=== PATIENT | female | born 1945 | race Caucasian/White ===

== ENCOUNTER 2016-12-13 11:42 | Emergency (ER) | payer OTHER ==
[~2016-12-13] VITALS: Ht 162.6 cm; Wt 83.0 kg
[~2016-12-13 11:42] MED LIST: ALBU8.5H3 INH; CIPR500T4 PO; GLIM2TAB47 PO; HYD25 PO; LANT3I SC; METF850T PO; METR500T PO; MULTI PO; OMEG1CAP31 PO; ONDA4TAB14 PO; PANT40TA4 PO; PRAV40TA76 PO; TEN25 PO; TRAM50TA2 PO
[2016-12-13 11:44] VITALS: Ht 162.6 cm; Wt 83.0 kg
[2016-12-13] MEDS ORDERED: ALBUTEROL/IPRATROPIUM (NEB) 3 ML AMP HHN STA (13:59)
--- NOTE | 2016-12-13 14:23 | ERD ---
ER Documentation Chief Complaint Date/Time DATE: 12/13/16 TIME: 14:19 Chief Complaint CHEST CONGESTION,COUGH,NOTED DRY BLOOD ON THE SPUTUM.SORE THROAT HPI This is a 71-year-old female who presents with cough and chest congestion for 4 days. Patient has a history of asthma, diabetes type 2, and hypertension. Patient has a smoking history. She had one episode of hemoptysis 3 days ago. She complains of chest pain that is reproducible with touch and is worse with walking. She denies history of cardiac related illness. Patient also has a runny nose and chills for 4 days. Patient denies nausea, vomiting, abdominal pain, diarrhea and sore throat. ROS All systems reviewed and are negative except as per history of present illness. Medications Home Meds Active Scripts Ondansetron (Ondansetron Odt) 4 Mg Tab.rapdis, 4 MG PO Q6H Y for NAUSEA AND/OR VOMITING, #14 TAB Prov:TERESA SHIPMAN. DO 09/13/16 Tramadol HCl (Tramadol HCl) 50 Mg Tablet, 50 MG PO TID, #30 TAB Prov:TERESA SHIPMAN. DO 09/13/16 Metronidazole* (Flagyl*) 500 Mg Tablet, 500 MG PO TID for 7 Days, TAB Prov:TERESA SHIPMAN. DO 09/13/16 Ciprofloxacin Hcl* (Ciprofloxacin Hcl*) 500 Mg Tablet, 500 MG PO BID for 7 Days , TAB Prov:TERESA SHIPMAN. DO 09/13/16 Reported Medications Albuterol Sulfate* (Proair HFA*) 8.5 Gm Hfa.aer.ad, 2 PUFF INH Q4H Y for WHEEZING AND SOB, #1 INHALER 09/13/16 Multivitamins* (Theragran*) 1 Tab Tab, 1 TAB PO DAILY, TAB 09/13/16 [place]-3/Dha/Epa/Fish Oil (FISH OIL 1,000 MG SOFTGEL) 1 Each Capsule, 1 EACH PO BID, CAP 09/13/16 Insulin Glargine* (Lantus*) 100 Unit/Ml Soln, 20 UNIT SC QHS, #1 VIAL 09/13/16 Hydrochlorothiazide* (Hydrochlorothiazide*) 25 Mg Tab, 25 MG PO DAILY, #30 TAB 09/13/16 Pravastatin Sodium* (Pravastatin Sodium*) 40 Mg Tablet, 40 MG PO AC BREAKFAST, TAB 09/13/16 Metformin Hcl* (Metformin Hcl*) 850 Mg Tablet, 850 MG PO BID WITH MEALS, TAB 04/20/15 Pantoprazole* (Pantoprazole*) 40 Mg Tablet.dr, 40 MG PO AC BREAKFAST 12/18/12 Glimepiride* (Amaryl*) 2 Mg Tablet, 4 MG PO BID, 0 Refills 07/18/10 Atenolol (Tenormin) 25 Mg Tab, 25 MG PO DAILY, 0 Refills 07/18/10 Allergies Allergies: Coded Allergies: aspirin (Verified Allergy, Severe, 04/20/15) codeine (Verified Allergy, Severe, 04/20/15) tetracycline (Verified Allergy, Severe, 04/20/15) PMhx/Soc History of Surgery: Yes (GALLBLADDER) Anesthesia Reaction: No Hx Neurological Disorder: No Hx Respiratory Disorders: No Hx Cardiac Disorders: Yes (HYPERTENSION,HIGH CHOLESTEROL) Hx Psychiatric Problems: No Hx Miscellaneous Medical Probl: Yes (DM) Hx Alcohol Use: No Hx Substance Use: No Hx Tobacco Use: No Smoking Status: Never smoker FmHx Noncontributory for chief complaint Physical Exam Vitals Vital Signs Date Time Temp Pulse Resp B/P Pulse Ox O2 Delivery O2 Flow Rate FiO2 12/13/16 11:44 97.8 80 18 188/61 98 Physical Exam INITIAL VITAL SIGNS: Reviewed by me. GENERAL: Alert and interactive. No acute distress. Obese body habitus HEAD: Head is normocephalic and atraumatic. EYES: EOMI. No scleral icterus. No conjunctival injection. ENT: Moist mucosa. NECK: Supple. Full range of motion. RESPIRATORY: Normal respiratory effort. Clear breath sounds bilaterally. No wheezing, rales, or rhonchi. CV: Regular rate and rhythm. Normal S1 S2. No S3 or S4. No murmurs. ABDOMEN: Soft, non-distended, non-tender. No guarding. No rebound. No masses. EXTREMITIES: No deformity. SKIN: Warm and dry. NEUROLOGIC: Alert and oriented x 4. Speech is normal. Moves all extremities equally. No motor or sensory deficits noted. Results 24 hrs Current Medications Medications (Trade) Dose Ordered Sig/Ibrahima Route PRN Reason Start Time Stop Time Status Last Admin Dose Admin Albuterol/ Ipratropium (Duoneb) 3 ml ONCE STAT HHN 12/13/16 13:59 12/13/16 14:02 DC Procedures/MDM EMERGENCY DEPARTMENT COURSE / MEDICAL DECISION MAKING: This is a 71 -year-old female who comes to the emergency room secondary to complaints of cough The patient was given medication nebulizer treatment in the department. On re- evaluation, the patient was feeling improved. Radiology: PROCEDURE: XR Chest. CLINICAL INDICATION: Cough/chest pain TECHNIQUE: Chest PA COMPARISON: 12/19/2015 FINDINGS: The mediastinal structures are unremarkable. There is calcification of the thoracic aorta (consistent with atherosclerosis). The heart is normal in size and configuration. The pulmonary vascularity is normal. The lung souza are unremarkable. No consolidation is identified. The pleural spaces are unremarkable. There are senescent changes of the axial skeleton. IMPRESSION: Calcification of the thoracic aorta (consistent with atherosclerosis). No evidence for active cardiopulmonary disease. EKG: Interpreted by ED physician Rate/Rhythm: Normal sinus rhythm with a with a rate of 68 bpm QRS, ST, T-waves: No changes consistent w/ acute ischemia Impression: No evidence of ischemia or arrhythmia The primary diagnosis is upper respiratory infection. Secondary diagnosis is cough. I have low suspicion for at this time bronchitis, pneumonia, acute coronary ischemia, other cardiopulmonary abnormality. Discharge: I have discussed the lab results and diagnostic findings with the patient and answered any questions or concerns. The patient was discharged with a prescription for Tessalon Perles and promethazine DM. The patient was advised to followup with their PMD in 1-2 days and to return to the Emergency Department if there are any new or worsening symptoms. The patient understood and agreed with the diagnosis, treatment and plan. The patient is stable for discharge at this time. Departure Diagnosis: Primary Impression: Upper respiratory infection Additional Impression: Cough Condition: Stable Patient Instructions: Cough, Chronic, Uncertain Cause, (Adult), Preventing Common Respiratory Infections Referrals: [facility] Additional Instructions: Follow-up with your primary care physician within 1 week. Return to the emergency department immediately should you have any new or worsening symptoms, uncontrolled fevers, or other unexplained symptoms. Take all medications as directed. SHELIA PIPER PA-C Dec 13, 2016 14:23
--- NOTE | 2016-12-13 14:26 | RADRPT ---
PROCEDURE: XR Chest. CLINICAL INDICATION: Cough/chest pain TECHNIQUE: Chest PA COMPARISON: 12/19/2015 FINDINGS: The mediastinal structures are unremarkable. There is calcification of the thoracic aorta (consiste nt with atherosclerosis). The heart is normal in size and configuration. The pulmonary vascularity is normal. The lung souza are unremarkable. No consolidation is identified. The pleural spaces are unremarkable. There are senescent changes of the axial skeleton. IMPRESSION: Calcification of the thoracic aorta (consistent with atherosclerosis). No evidence for active cardiopulmonary disease. RPTAT: HGDB .Kee Freedman MD, Date Time Electronically viewed and signed by .Kee Freedman MD, on 12/13/2016 14:26 .B/
[2016-12-13] MEDS ORDERED: BENZ100C70 PO (14:38)
[2016-12-13] MEDS ORDERED: D-ME473S18 PO (14:39)
[2016-12-13] MEDS ORDERED: ALBUTEROL 0.5% (NEB) 2.5 MG/0.5 ML AMP ONE (14:42)
[2016-12-13] MEDS ORDERED: IPRATROPIUM (NEB) 0.5 MG/2.5 ML AMP ONE (14:42)
[2016-12-13] MEDS ORDERED: ALBUTEROL 0.083% (NEB) 2.5 MG/3 ML AMP HHN ONE (15:00)
[2016-12-13] MEDS ORDERED: IPRATROPIUM (NEB) 0.5 MG/2.5 ML AMP HHN ONE (15:00)
[2016-12-13] MEDS ORDERED: ALBUTEROL 0.5% (NEB) 2.5 MG/0.5 ML AMP HHN STA (15:04)
[2016-12-13 15:30] VITALS: BP 172/66; PULSE 89; RESP 18; TEMP 98.2
== END 2016-12-13 15:32 | disposition home or self-care (01) ==
LOC: FTE 11:42
DX: J06.9 Acute upper respiratory infection, unspecified (principal); I10 Essential (primary) hypertension; E11.9 Type 2 diabetes mellitus without complications; J45.909 Unspecified asthma, uncomplicated; E66.9 Obesity, unspecified; Z79.4 Long term (current) use of insulin; Z79.84 Long term (current) use of oral hypoglycemic drugs; Z87.891 Personal history of nicotine dependence; Z68.31 Body mass index [BMI] 31.0-31.9, adult
CPT/HCPCS: 71010; 93005; 94640

== ENCOUNTER 2017-03-05 09:33 | Inpatient (IN) | payer OTHER ==
[~2017-03-05] VITALS: Ht 157.5 cm; Wt 85.0 kg
[~2017-03-05 09:33] MED LIST changes: +ATEN-138 PO; +BENZ100C70 PO; +D-ME473S18 PO; -TEN25 PO
[2017-03-05] MEDS ORDERED: SODIUM CHLORIDE 0.9% 1L BAG IV* STA (10:09)
--- NOTE | 2017-03-05 10:29 | ERD ---
ER Documentation Chief Complaint Date/Time DATE: 03/05/17 TIME: 10:28 Chief Complaint Complains of fever x 2 days HPI 71-year-old woman presents with lower abdominal pain mostly suprapubic and left lower quadrant as well as dysuria 2 days and fever. She complains of chills as well. No vaginal discharge or vaginal bleeding, no cough, no sore throat, no complaints of chest pain or shortness of breath. Patient denies vomiting or diarrhea, no headache or blurry vision, no neck pain or stiffness. Patient denies recent antibiotic use. ROS All systems reviewed and are negative except as per history of present illness. Medications Home Meds Active Scripts Dextromethorphan Hb-Promethazine Hcl (Promethazine DM Syrup) 473 Ml Syrup, 5 ML PO Q6H Y for COUGH, #4 OZ Prov:SHELIA PIPER PA-C 12/13/16 Benzonatate* (Tessalon Perle*) 100 Mg Capsule, 100 MG PO Q8H Y for COUGH, #20 CAP Prov:SHELIA PIPER PA-C 12/13/16 Ondansetron (Ondansetron Odt) 4 Mg Tab.rapdis, 4 MG PO Q6H Y for NAUSEA AND/OR VOMITING, #14 TAB Prov:TERESA SHIPMAN DO 09/13/16 Tramadol HCl (Tramadol HCl) 50 Mg Tablet, 50 MG PO TID, #30 TAB Prov:TERESA SHIPMAN. DO 09/13/16 Metronidazole* (Flagyl*) 500 Mg Tablet, 500 MG PO TID for 7 Days, TAB Prov:TERESA SHIPMAN DO 09/13/16 Ciprofloxacin Hcl* (Ciprofloxacin Hcl*) 500 Mg Tablet, 500 MG PO BID for 7 Days , TAB Prov:TERESA SHIPMAN DO 09/13/16 Reported Medications Albuterol Sulfate* (Proair HFA*) 8.5 Gm Hfa.aer.ad, 2 PUFF INH Q4H Y for WHEEZING AND SOB, #1 INHALER 09/13/16 Multivitamins* (Theragran*) 1 Tab Tab, 1 TAB PO DAILY, TAB 09/13/16 [place]-3/Dha/Epa/Fish Oil (FISH OIL 1,000 MG SOFTGEL) 1 Each Capsule, 1 EACH PO BID, CAP 09/13/16 Insulin Glargine* (Lantus*) 100 Unit/Ml Soln, 20 UNIT SC QHS, #1 VIAL 09/13/16 Hydrochlorothiazide* (Hydrochlorothiazide*) 25 Mg Tab, 25 MG PO DAILY, #30 TAB 09/13/16 Pravastatin Sodium* (Pravastatin Sodium*) 40 Mg Tablet, 40 MG PO AC BREAKFAST, TAB 09/13/16 Metformin Hcl* (Metformin Hcl*) 850 Mg Tablet, 850 MG PO BID WITH MEALS, TAB 04/20/15 Pantoprazole* (Pantoprazole*) 40 Mg Tablet.dr, 40 MG PO AC BREAKFAST 12/18/12 Glimepiride* (Amaryl*) 2 Mg Tablet, 4 MG PO BID, 0 Refills 07/18/10 Atenolol (Tenormin) 25 Mg Tab, 25 MG PO DAILY, 0 Refills 07/18/10 Allergies Allergies: Coded Allergies: aspirin (Verified Allergy, Severe, 04/20/15) codeine (Verified Allergy, Severe, 04/20/15) tetracycline (Verified Allergy, Severe, 04/20/15) PMhx/Soc Hypertension, diabetes mellitus, gastritis, asthma, obesity, history of cholecystectomy History of Surgery: Yes (GALLBLADDER) Anesthesia Reaction: No Hx Neurological Disorder: No Hx Respiratory Disorders: No Hx Cardiac Disorders: Yes (HYPERTENSION,HIGH CHOLESTEROL) Hx Psychiatric Problems: No Hx Miscellaneous Medical Probl: Yes (DM) Hx Alcohol Use: No Hx Substance Use: No Hx Tobacco Use: No FmHx Family History: No diabetes Physical Exam Vitals Vital Signs Date Time Temp Pulse Resp B/P Pulse Ox O2 Delivery O2 Flow Rate FiO2 03/05/17 10:40 99 22 205/83 97 Room Air 03/05/17 09:38 101.7 93 20 207/77 100 Physical Exam GENERAL: Well-developed, well-nourished, febrile, moderate discomfort HEENT: Moist mucous membranes, pink conjunctiva, no cervical spine tenderness or step-off deformities, no goiter, no jaundice or icterus, extraocular movements intact without pain. No submandibular induration, and no pharyngeal erythema NEURO: Alert and oriented 3, cranial nerves II through XII intact bilaterally, pupils equal round reactive to light, no focal deficits or facial asymmetry, sensation intact distally Strength 5/5 in upper and lower extremities bilaterally CARDIAC: Tachycardic and regular, no murmurs rubs or gallops LUNGS: Clear bilaterally no wheezing crackles or stridor ABDOMEN: Soft nontender, no guarding, no rigidity, no rebound, no psoas sign no obturator sign. Normoactive bowel sounds SKIN: Warm and dry to touch, no abrasions, contusions, or hematomas, no lacerations, no ecchymosis, no target lesions, and without ulcers EXTREMITIES: No clubbing cyanosis or edema, calves are bilaterally symmetrical, no Homans sign, no popliteal cord sign. Distal pulses equal and bilateral PSYCH: Normal affect without agitation or irritability Result Diagram: 03/05/17 1010 03/05/17 1010 Results 24 hrs Laboratory Tests Test 03/05/17 10:06 03/05/17 10:10 03/05/17 10:25 Bedside Glucose 150mg/dL White Blood Count 14.710^3/ul Red Blood Count 4.8210^6/ul Hemoglobin 13.7g/dl Hematocrit 41.7% Mean Corpuscular Volume 86.5fl Mean Corpuscular Hemoglobin 28.4pg Mean Corpuscular Hemoglobin Concent 32.9g/dl Red Cell Distribution Width 13.4% Platelet Count 28021^3/UL Mean Platelet Volume 9.8fl Neutrophils % 76.5% Lymphocytes % 19.2% Monocytes % 2.6% Eosinophils % 0.9% Basophils % 0.5% Nucleated Red Blood Cells % 0.0/100WBC Neutrophils # 11.310^3/ul Lymphocytes # 2.810^3/ul Monocytes # 0.410^3/ul Eosinophils # 0.110^3/ul Basophils # 0.110^3/ul Nucleated Red Blood Cells # 0.010^3/ul Prothrombin Time 12.5Sec Prothrombin Time Ratio 1.0 INR International Normalized Ratio 0.93 Activated Partial Thromboplast Time 31.7Sec Sodium Level 134mmol/L Potassium Level 4.1mmol/L Chloride Level 93mmol/L Carbon Dioxide Level 29mmol/L Anion Gap 16 Blood Urea Nitrogen 14mg/dl Creatinine 0.63mg/dl Glucose Level 169mg/dl Lactic Acid Level 2.3mmol/L Calcium Level 9.8mg/dl Total Bilirubin 0.5mg/dl Direct Bilirubin 0.00mg/dl Indirect Bilirubin 0.5mg/dl Aspartate Amino Transf (AST/SGOT) 51IU/L Alanine Aminotransferase (ALT/SGPT) 43IU/L Alkaline Phosphatase 74IU/L Troponin I < 0.012ng/ml Total Protein 8.5g/dl Albumin 4.7g/dl Globulin 3.80g/dl Albumin/Globulin Ratio 1.23 Lipase 132U/L Urine Color LT. YELLOW Urine Clarity CLEAR Urine pH 7.0 Urine Specific Drain 1.010 Urine Ketones NEGATIVE Urine Nitrite NEGATIVE Urine Bilirubin NEGATIVE Urine Urobilinogen 0.2 E.U./dL Urine Leukocyte Esterase NEGATIVE Urine Hemoglobin NEGATIVE Urine Glucose NEGATIVE% Urine Total Protein NEGATIVE Current Medications Medications (Trade) Dose Ordered Sig/Ibrahima Route PRN Reason Start Time Stop Time Status Last Admin Dose Admin Sodium Chloride 3000 ml 3,000 ml BOLUS OVER 2 HOURS STAT IV* 03/05/17 10:09 03/05/17 10:10 DC 03/05/17 10:35 Ceftriaxone Sodium (Rocephin) 50 ml @ 100 mls/hr ONCE ONCE IVPB 03/05/17 10:30 03/05/17 11:08 DC 03/05/17 10:35 Ibuprofen 600 mg 600 mg ONCE ONCE PO 03/05/17 10:30 03/05/17 10:31 DC 03/05/17 10:35 Metronidazole (Flagyl 500 Mg (Pmx)) 100 ml @ 100 mls/hr ONCE ONCE IVPB 03/05/17 11:30 03/05/17 12:29 DC 03/05/17 11:46 Procedures/MDM IV line was established patient was placed on cardiac cath tech rhythm strip revealed a sinus tachycardia at about 110 bpm with upright P and T waves. Patient was febrile. Blood and urine cultures have been ordered results are pending I will follow-up. EKG performed, read by me revealed a sinus tachycardia at 102 bpm, normal axis, narrow QRS complex, no concerning ST elevations or depressions noted. Chest X-ray 1V Interpreted by me: Soft Tissue: No acute abnormalities Bones: No acute abnormalities Mediastinum/Cardiac Silhouette/Lungs: No acute abnormalities CT scan of abdomen and pelvis was also performed, there is no acute inflammatory infectious pathology noted. Please refer to radiologist dictation for full report. Given her initial complaints of abdominal pain, fever, and tachycardia treated her here for possible sepsis with ceftriaxone 1 g IV and metronidazole 500 mg IV. Patient also received ibuprofen 600 mg p.o., and about 3 L normal saline intravenously CBC reveals a leukocytosis of 15, electrolytes reveal BUN/creatinine 14/0.6, liver function tests are normal, troponin was negative, lactic acid elevated at 2.3. Initial urine analysis was negative although given her overall presentation and symptomatology I do suspect early UTI, cultures are pending. Other septic sources have been considered although further interventional management and diagnostic procedures deferred to inpatient managing team. Patient's infectious symptoms have not stabilized and the patient is at risk of rapid decompensation. The patient will be admitted for careful hydration, antibiotic therapy, and infectious source control. Severe Sepsis Assessment: Infectious Source: pyleonephritis Patient has no signs or symptoms of end-organ damage and lab criteria for end- organ damage is unremarkable. Severe Sepsis Managment: Blood Cultures X 2 before broad spectrum antibiotics initiated within 3 hours of recognition. 30 ml/kg NS bolus Completed Initial Lactate: Elevated at 2.3 Repeat Lactate pending Critical Care: Time: 42 minutes, this was time separate from other procedures Treatments/Evaluations: Emergent fluid management, while maintaining close respiratory support. Immediate broad spectrum antibiotic therapy. Simultaneous assessment for possible sources in order to direct therapy. Consideration for invasive and chemical support to prevent respiratory or cardiac collapse. Septic Shock Assessment (1 hour post 30 ml/kg fluid bolus): Hypotension (SBP < 90 or 40 mmHg drop, MAP < 65): No Lactic acid > 4.0 No Perfusion Reassessment for Septic Shock: Temp 100, pulse 84 bpm, respiratory rate 16 breaths per minute, blood pressure 120/80 Heart Exam: Regular rate and rhythm Lung Exam: No Crackles Capillary Refill: Less than 2 second Peripheral Pulses: Radially present Skin: Warm and dry Hypotensive Treatment (not required for isolated lactic acid elevation): Comfort Care: No Central LIne: Not indicated Vasopressor started: Not indicated I considered further perfusion assessment with CVP measurement, SCVO2, bedside ultrasound volume assessment, passive leg raise, trial of further fluid bolus. And preceded with IV fluid hydration and resuscitation and IV antibiotics Accepting Care Team: Current data and ongoing care discussed. Time: Time of admission Primary Provider: Hospital Consulting: Infectious disease Outstanding Data: none Departure Diagnosis: Primary Impression: Sepsis Sepsis type: sepsis due to unspecified organism Qualified Code: A41.9 - Sepsis, due to unspecified organism Additional Impression: UTI (urinary tract infection) Urinary tract infection type: acute cystitis Hematuria presence: without hematuria Qualified Code: N30.00 - Acute cystitis without hematuria Condition: SANGITA Hargrove MD March 05, 2017 10:29
[2017-03-05] MEDS ORDERED: IBUPROFEN 600 MG TAB PO ONE (10:30)
[2017-03-05] MEDS ORDERED: CEFTRIAXONE 1 GM/50 ML (PMX) 50 ML IVPB ONE (10:30)
[2017-03-05 10:37] LABS: ADD SCAN DIFF NO
[2017-03-05 10:42] LABS: BASOPHIL # 0.1 10^3/ul (0.0-0.1); BASOPHILS % 0.5 % (0.0-2.0); EOSINOPHILS # 0.1 10^3/ul (0.0-0.5); EOSINOPHILS % 0.9 % (0.0-7.0); HEMATOCRIT 41.7 % (37.0-47.0); HEMOGLOBIN 13.7 g/dl (12.0-16.0); LYMPHOCYTES # 2.8 10^3/ul (0.8-2.9); LYMPHOCYTES % 19.2 % (15.0-51.0); MEAN CORPUSCULAR HEMOGLOBIN 28.4 pg (29.0-33.0); MEAN CORPUSCULAR HGB CONC 32.9 g/dl (32.0-37.0); MEAN CORPUSCULAR VOLUME 86.5 fl (82.0-101.0); MEAN PLATELET VOLUME 9.8 fl (7.4-10.4); MONOCYTE # 0.4 10^3/ul (0.3-0.9); MONOCYTES % 2.6 % (0.0-11.0); NEUTROPHIL # 11.3 10^3/ul (1.6-7.5); NEUTROPHILS % 76.5 % (39.0-77.0); PLATELET COUNT 281 10^3/UL (140-415); RED BLOOD COUNT 4.82 10^6/ul (4.20-5.40); RED CELL DISTRIBUTION WIDTH 13.4 % (11.5-14.5); WHITE BLOOD COUNT 14.7 10^3/ul (4.8-10.8)
[2017-03-05 10:50] LABS: ADD UMIC NO; URINE BILIRUBIN (Dip) NEGATIVE (NEGATIVE); URINE BLOOD (Dip) NEGATIVE (NEGATIVE); URINE COLOR LT. YELLOW (YELLOW); URINE GLUCOSE (Dip) NEGATIVE (NEGATIVE); URINE KETONES (Dip) NEGATIVE (NEGATIVE); URINE LEUKOCYTE ESTERASE (Dip) NEGATIVE (NEGATIVE); URINE NITRITE (Dip) NEGATIVE (NEGATIVE); URINE TOTAL PROTEIN (Dip) NEGATIVE (NEGATIVE); URINE UROBILINOGEN (Dip) 0.2 E.U./dL (0.1-1.0)
--- NOTE | 2017-03-05 10:50 | RADRPT ---
PROCEDURE: Chest Radiograph. CLINICAL INDICATION: Sepsis TECHNIQUE: Single frontal chest radiograph. COMPARISON: Chest radiograph 12/13/2016 FINDINGS: Heart size is within normal limits. Atherosclerotic calcifications are present. No infiltrate or effusion is seen. The bones are intact. IMPRESSION: 1. No evidence of acute cardiopulmonary disease. 2. Atherosclerotic vascular disease. RPTAT: KK .Axel Robb MD, MD Date Time Electronically viewed and signed by .Axel Robb MD, MD on 03/05/2017 10:50 .B/
[2017-03-05 11:01] LABS: ALBUMIN 4.7 g/dl (3.3-4.9); CHLORIDE 93 mmol/L (97-110)
[2017-03-05 11:02] LABS: POTASSIUM 4.1 mmol/L (3.5-5.1); SODIUM 134 mmol/L (135-144)
[2017-03-05 11:04] LABS: ALBUMIN/GLOBULIN RATIO 1.23; ALKALINE PHOSPHATASE 74 IU/L (42-121); ASPARTATE AMINO TRANSFERASE 51 IU/L (15-46); BILIRUBIN,INDIRECT 0.5 mg/dl (0-1.1); BILIRUBIN,TOTAL 0.5 mg/dl (0.2-1.3); BLOOD UREA NITROGEN 14 mg/dl (7-20); CARBON DIOXIDE 29 mmol/L (21-31); CREATININE 0.63 mg/dl (0.44-1.00); TOTAL PROTEIN 8.5 g/dl (6.1-8.1)
[2017-03-05 11:05] LABS: ALANINE AMINOTRANSFERASE 43 IU/L (13-69); CALCIUM 9.8 mg/dl (8.4-10.2); GLUCOSE 169 mg/dl (70-220)
[2017-03-05 11:08] LABS: ANION GAP 16 (8-16)
[2017-03-05 11:17] LABS: INR 0.93; PROTIME 12.5 Sec (12.2-14.2)
[2017-03-05 11:18] LABS: PARTIAL THROMBOPLASTIN TIME 31.7 Sec (25.0-35.0)
[2017-03-05 11:26] LABS: TROPONIN-I < 0.012 ng/ml (0.00-0.12)
[2017-03-05] MEDS ORDERED: metroNIDAZOLE 500 MG/NS (PMX) 100 ML IVPB ONE (11:30)
--- NOTE | 2017-03-05 13:01 | RADRPT ---
PROCEDURE: CT Abdomen and Pelvis without contrast. CLINICAL INDICATION: Abdominal pain TECHNIQUE: CT scan of the abdomen and pelvis was performed on a multidetector high-resolution CT s canner without intravenous contrast. Coronal and sagittal reformatted images were obtained from the axial source images. Images were reviewed on a high-resolution PACS workstation. The total exam CTD I equals 21mGy and the total exam DLP equals 1185mGy-cm. One or more of the following dose reduction techniques were used: Automated exposure control, Adjustment of the mA and/or kV according to patie nt size, and/or use of iterative reconstruction technique. COMPARISON: Abdominal CT 09/13/2016 FINDINGS: Evaluation of the solid organs is limited given the lack of intravenous contrast administration. The lung bases are clear. Nodular surface contour to the liver. Diffuse hypoattenuation of the liver. Status post cholecyste ctomy. No pancreatic ductal dilatation. Upper abdominal varices are seen. There is recanalization of the umbilical vein. The spleen is stable size. The adrenals are unremarkable. No hydronephrosis. No renal or ureteral stone. No bowel obstruction. Normal-caliber appendix. Colonic diverticulosis. No significant ascites or evidence of pneumoperitoneum. Scattered prominent periportal and retroperi toneal lymph nodes are similar to prior. Aortoiliac atherosclerosis. Fibroid uterus. Degenerative changes of the spine. IMPRESSION: No renal or ureteral stone. Cirrhosis with a stigmata of portal hypertension including recanalization of the umbilical vein and upper abdominal varices. Prominent periportal and retroperitoneal lymph nodes are presumably reacti ve. Hepatic steatosis. No evidence of bowel obstruction. Colonic diverticulosis. Fibroid uterus. Status post cholecystectomy. RPTAT: AA .Alistair Grande MD, MD Date Time Electronically viewed and signed by .Alistair Grande MD, MD on 03/05/2017 13:01 .T/
[2017-03-05] MEDS ORDERED: BENZONATATE 100 MG CAP PO PRN (17:00)
[2017-03-05] MEDS ORDERED: ONDANSETRON 4 MG INJ IV PRN (17:00)
[2017-03-05] MEDS ORDERED: GLUCOSE GEL 15 GRAM TUBE PO PRN ×2 (17:00)
[2017-03-05] MEDS ORDERED: DOCUSATE SODIUM 100 MG CAP PO PRN (17:00)
[2017-03-05] MEDS ORDERED: ALBUTEROL 18 GM INHALER INH PRN (17:00)
[2017-03-05] MEDS ORDERED: GLUCAGON 1 MG INJ IM PRN (17:00)
[2017-03-05] MEDS ORDERED: ACETAMINOPHEN 325 MG TAB PO PRN (17:00)
[2017-03-05] MEDS ORDERED: SOD CHLORIDE 0.9% 1,000 ML IV SCH (17:00)
[2017-03-05] MEDS ORDERED: DEXTROSE 50% 50 ML SYRINGE IV PRN ×2 (17:00)
[2017-03-05] MEDS ORDERED: GLUCOSE GEL 15 GRAM TUBE BUCCAL PRN (17:00)
[2017-03-05] MEDS: CEFTRIAXONE 1 GM/50 ML (PMX) 50 ML IVPB SCH (17:27)
[2017-03-05] MEDS: metFORMIN 850 MG TAB PO SCH (17:54)
[2017-03-05] MEDS: ATENOLOL 25 MG TAB PO SCH (17:55)
[2017-03-05] MEDS: HYDROCHLOROTHIAZIDE 25 MG TAB PO SCH (17:55)
[2017-03-05] MEDS: INSULIN ASPART [NOVOLOG] 3 ML PEN SC SCH ×2 (17:56→21:00)
[2017-03-05] MEDS: traMADol 50 MG TAB PO PRN (19:22)
[2017-03-05 20:53] VITALS: BP 133/60; RESP 18
[2017-03-05] MEDS ORDERED: INSULIN GLARGINE [LANtus] 3 ML PEN SC SCH (21:00)
[2017-03-05] MEDS ORDERED: FISH OIL 1,000 MG CAP PO SCH (21:00)
[2017-03-05 21:35] VITALS: Ht 157.5 cm; Wt 85.0 kg
[2017-03-05] MEDS: FISH OIL 1,000 MG CAP PO SCH (22:29)
[2017-03-05] MEDS ORDERED: INSULIN GLARGINE [LANtus] 3 ML PEN SC ONE (22:30)
[2017-03-06 04:54] VITALS: BP 129/84; PULSE 77; RESP 18
--- NOTE | 2017-03-06 06:35 | HP ---
DATE OF ADMISSION: 03/05/2017 PRESENTING COMPLAINT: Fever and chills. HISTORY OF PRESENTING COMPLAINT: Ms. Sharp is a 71-year-old obese female with a past medical histo ry of high blood pressure, diabetes type 2 and dyslipidemia who came to the emergency room today wit h complaints of fever and chills and diffuse abdominal soreness and occasional dysuria. The patient is a poor historian, and as such, the sequence of events is not quite clear, but it looks like washington bateman also has a history of fibroids, and she is scheduled for an outpatient uterine biopsy in March. H owever, she has been having some dysuria as well as difficulty with urination which is not clear if this is associated with her fibroids. She was found to have fevers in the emergency room and some t achycardia, but an infectious source was not found. She is being admitted for further management. REVIEW OF SYSTEMS: She denies bleeding. Denies chest pain, shortness of breath or cough. Denies d iarrhea or nausea, vomiting. Denies syncopal episode. Denies blurry vision. Denies headaches. De nies joint swelling or pain but she has been having fever and chills, severe lethargy ____ loss of a ppetite. There has been no blood in her urine or blood in her stool. PAST MEDICAL HISTORY: High blood pressure, diabetes, dyslipidemia. Per previous report, the ray parikh supposedly has cirrhosis. However, the patient says that where she goes to see her outpatient hep atologist, they tell her she does not have cirrhosis. SURGICAL HISTORY: Cholecystectomy. SOCIAL HISTORY: The patient quit smoking 3 months ago after smoking tobacco for ____ years. ALLERGIES: 1. ASPIRIN. 2. CODEINE. 3. TETRACYCLINE. FAMILY HISTORY: Noncontributory. PHYSICAL EXAMINATION: VITAL SIGNS: When she first got the ER, her temperature 101.7, pulse 99, blood pressure 207/77, sat urations 100% on room air. At time of my review, heart rate was still 99, but blood pressure had im proved to 143/53, saturations 95% on room air. GENERAL: Obese female, alert, oriented, having active chills, quite uncomfortable and anxious. HEENT: Head normocephalic. Pupils equal and reactive. Mucous membranes moist. There was no scler al jaundice. Posterior pharynx clear of exudate or erythema. NECK: Supple without JVD. CHEST: Clear to auscultation. Good air entry on both sides. CARDIOVASCULAR: Tachycardia without murmurs. ABDOMEN: Obese. Diffuse soreness but no point tenderness. Soft with normoactive bowel sounds. EXTREMITIES: Lower extremities negative for edema, swelling. No visible joint swelling or deformit y. SKIN: No skin rash. LABORATORY VALUES: Leukocytosis of 14,000 also noted. Normal hemoglobin but MCH is reduced. Plate let count is normal. Her sodium and chloride levels were just slightly reduced at 134 and 93, and h er blood glucose was 169. Other than that, a basic metabolic profile was normal. Lactic acid was a lso elevated at 2.3 but had improved to 1.7 with fluids. Her ____ was mildly elevated at 51. ____ was normal. Troponin was normal. Lipase was normal. Urinalysis was negative. Coagulation panel w as unremarkable. IMAGING: Chest x-ray was negative. CT of the abdomen and pelvis showed cirrhosis with portal hyper tension and reactive lymphadenopathy as well as hepatic steatosis and fibroids. ASSESSMENT: A 71-year-old female with the following problems: 1. Systemic inflammatory response syndrome as evidenced by fever, leukocytosis and lactic acidosis without clear source. 2. Hypertensive urgency. 3. Diabetes type 2 with fairly good control. 4. Dyslipidemia. 5. Chronic cirrhosis, source unclear. The patient does not have a history of alcoholism. 6. Mild transaminitis. 7. History of chronic tobacco use, quit recently 3 months ago. 8. The patient has uterine fibroids that are being worked up as outpatient. PLAN: The patient is to be admitted, and we will send her blood as well as urine cultures. She antolin ht have an occult UTI based on her symptoms and her history of uterine fibroids that are not clear. Will commence her on empiric antibiotics, provide antipyretics, antiemetics and pain control. In m eantime, will resume her home medications for blood pressure control and add p.r.n. medications for better control. She will be put on a diabetic diet and titrate ____ insulin sliding scale also for improved control of her diabetes while in-house. Further interventions will depend on her clinical course. Will get a pelvic ultrasound to assess the status of the fibroids and intervene as indicate d and follow up cultures to see what we find. I have discussed this with the patient. I have answe red questions. For prophylaxis, she will be on Lovenox as well as Pepcid. Dictated By: NIKOLE SOARES MD, BA/NTS Conf#: [id number] DID#: [id number]
[2017-03-06 07:25] VITALS: BP 118/59; RESP 20
[2017-03-06] MEDS: INSULIN ASPART [NOVOLOG] 3 ML PEN SC SCH ×4 (08:15→21:00)
[2017-03-06 08:39] LABS: ADD SCAN DIFF NO
[2017-03-06 08:46] LABS: BASOPHIL # 0.1 10^3/ul (0.0-0.1); BASOPHILS % 0.5 % (0.0-2.0); EOSINOPHILS # 0.1 10^3/ul (0.0-0.5); EOSINOPHILS % 0.5 % (0.0-7.0); HEMATOCRIT 36.6 % (37.0-47.0); LYMPHOCYTES # 2.8 10^3/ul (0.8-2.9); LYMPHOCYTES % 16.6 % (15.0-51.0); MEAN CORPUSCULAR HEMOGLOBIN 28.5 pg (29.0-33.0); MEAN CORPUSCULAR HGB CONC 32.8 g/dl (32.0-37.0); MEAN CORPUSCULAR VOLUME 86.9 fl (82.0-101.0); MONOCYTE # 0.6 10^3/ul (0.3-0.9); MONOCYTES % 3.8 % (0.0-11.0); NEUTROPHILS % 78.1 % (39.0-77.0); PLATELET COUNT 240 10^3/UL (140-415); RED BLOOD COUNT 4.21 10^6/ul (4.20-5.40); RED CELL DISTRIBUTION WIDTH 13.7 % (11.5-14.5); WHITE BLOOD COUNT 16.6 10^3/ul (4.8-10.8)
[2017-03-06] MEDS: metFORMIN 850 MG TAB PO SCH ×2 (09:02→17:13)
[2017-03-06] MEDS: PANTOPRAZOLE (EC) 40 MG TAB PO SCH (09:02)
[2017-03-06] MEDS: FISH OIL 1,000 MG CAP PO SCH ×2 (09:02→20:57)
[2017-03-06] MEDS: MULTIVITAMINS THERAPEUTIC TAB PO SCH (09:02)
[2017-03-06] MEDS: ATORVASTATIN 10 MG TAB PO SCH (09:02)
[2017-03-06] MEDS: ATENOLOL 25 MG TAB PO SCH (09:03)
[2017-03-06] MEDS: HYDROCHLOROTHIAZIDE 25 MG TAB PO SCH (09:03)
[2017-03-06] MEDS: LISINOPRIL 10 MG TAB PO SCH (09:04)
[2017-03-06] MEDS: ENOXAPARIN 40 MG/0.4 ML SYG SC SCH (09:06)
[2017-03-06 09:23] LABS: ALBUMIN 3.6 g/dl (3.3-4.9); BILIRUBIN,INDIRECT 0.8 mg/dl (0-1.1); BILIRUBIN,TOTAL 0.8 mg/dl (0.2-1.3); CALCIUM 8.6 mg/dl (8.4-10.2); CHOL/HDL RATIO 3.1 RATIO; CREATININE 0.61 mg/dl (0.44-1.00); MAGNESIUM 1.4 mg/dl (1.7-2.5); POTASSIUM 4.1 mmol/L (3.5-5.1); TOTAL PROTEIN 6.8 g/dl (6.1-8.1)
[2017-03-06] MEDS ORDERED: MAGNESIUM SULFATE 2 GM/50 ML 50 ML IVPB SCH (11:30)
[2017-03-06] MEDS: SOD CHLORIDE 0.9% 1,000 ML IV SCH ×2 (13:04→20:30)
--- NOTE | 2017-03-06 15:50 | PN ---
Date/Time of Note Date/Time of Note DATE: 03/06/17 TIME: 15:48 Assessment/Plan VTE Prophylaxis VTE Prophylaxis Intervention: SCD's Lines/Catheters IV Catheter Type (from Nrs): Peripheral IV Assessment/Plan Assessment/Plan A 71-year-old female with the following problems: 1. 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 Hypertensive urgency: improved 3. Diabetes type 2 with fairly good control. 4. Dyslipidemia. 5. Chronic cirrhosis, source unclear. The patient does not have a history of alcoholism. 6. Mild transaminitis. 7. History of chronic tobacco use, quit recently 3 months ago. 8. The patient has uterine fibroids that are being worked up as outpatient. 9. ?hypothyrodism PLAN: * continue current care and mgt' * Titrate meds for improved control * Full thyroid profile * plan to d/c when 24hr fever free Subjective 24 Hr Interval Summary Free Text/Dictation still had fever Constitutional: improved Exam/Review of Systems Vital Signs Vitals Vital Signs Date Time Temp Pulse Resp B/P Pulse Ox O2 Delivery O2 Flow Rate FiO2 03/06/17 07:25 99.1 77 20 118/59 96 03/06/17 04:54 Room Air Intake and Output 03/05/17 03/05/17 03/06/17 14:59 22:59 06:59 Intake Total 50 ml 1000 ml Balance 50 ml 1000 ml Exam GENERAL: Obese female, alert, oriented, looks clinically better HEENT: Head normocephalic. Pupils equal and reactive. Mucous membranes moist. There was no scleral jaundice. Posterior pharynx clear of exudate or erythema. NECK: Supple without JVD. CHEST: Clear to auscultation. Good air entry on both sides. CARDIOVASCULAR: Tachycardia without murmurs. ABDOMEN: Obese. Diffuse soreness but no point tenderness. Soft with normoactive bowel sounds. EXTREMITIES: Lower extremities negative for edema, swelling. No visible joint swelling or deformity. SKIN: No skin rash. Results Result Diagram: 03/06/17 0804 03/06/17 0804 Results 24 hrs Laboratory Tests Test 03/05/17 17:52 03/05/17 21:15 03/05/17 21:53 03/06/17 05:10 Bedside Glucose 118 137 Lactic Acid Level 2.4 H Thyroid Stimulating Hormone (TSH) 5.180 H Test 03/06/17 08:04 03/06/17 08:40 03/06/17 11:54 White Blood Count 16.6 H Red Blood Count 4.21 Hemoglobin 12.0 Hematocrit 36.6 L Mean Corpuscular Volume 86.9 Mean Corpuscular Hemoglobin 28.5 L Mean Corpuscular Hemoglobin Concent 32.8 Red Cell Distribution Width 13.7 Platelet Count 240 Mean Platelet Volume 10.0 Neutrophils % 78.1 H Lymphocytes % 16.6 Monocytes % 3.8 Eosinophils % 0.5 Basophils % 0.5 Nucleated Red Blood Cells % 0.0 Neutrophils # 13.0 H Lymphocytes # 2.8 Monocytes # 0.6 Eosinophils # 0.1 Basophils # 0.1 Nucleated Red Blood Cells # 0.0 Sodium Level 133 L Potassium Level 4.1 Chloride Level 102 Carbon Dioxide Level 26 Anion Gap 9 # Blood Urea Nitrogen 12 Creatinine 0.61 Glucose Level 112 # Calcium Level 8.6 Magnesium Level 1.4 L Total Bilirubin 0.8 Direct Bilirubin 0.00 Indirect Bilirubin 0.8 Aspartate Amino Transf (AST/SGOT) 47 H Alanine Aminotransferase (ALT/SGPT) 48 Alkaline Phosphatase 58 Total Protein 6.8 # Albumin 3.6 # Triglycerides Level 96 Cholesterol Level 133 LDL Cholesterol, Calculated 72 HDL Cholesterol 42 Cholesterol/HDL Ratio 3.1 Hepatitis B Surface Antigen NEGATIVE Hepatitis B Surface Antibody NEGATIVE Hepatitis C Antibody NEGATIVE Bedside Glucose 134 162 Medications Medications Current Medications Ceftriaxone Sodium (Rocephin) 50 ml @ 100 mls/hr Q24H IVPB Last administered on 03/05/17 17:27; Admin Dose 100 MLS/HR; Start 03/05/17 at 17:00 Atenolol (Tenormin) 25 mg DAILY PO Last administered on 03/06/17 09:03; Admin Dose 25 MG; Start 03/05/17 at 17:00 Benzonatate (Tessalon) 100 mg Q8H PRN PO COUGH; Start 03/05/17 at 17:00 Hydrochlorothiazide (Hydrochlorothiazide) 25 mg DAILY PO Last administered on 09:03; Admin Dose 25 MG; Start 03/05/17 at 17:00 Multivitamins Therapeutic (Theragran) 1 tab DAILY PO Last administered on 09:02; Admin Dose 1 TAB; Start 03/06/17 at 09:00 Tramadol HCl (Ultram) 50 mg TID PRN PO PAIN Last administered on 03/05/17 19:22 ; Admin Dose 50 MG; Start 03/05/17 at 17:00 Lisinopril (Zestril) 10 mg DAILY PO Last administered on 03/06/17 09:04; Admin Dose 10 MG; Start 03/06/17 at 09:00 Acetaminophen (Tylenol Tab) 650 mg Q6H PRN PO PAIN AND OR ELEVATED TEMP Last administered on 03/05/17 22:29; Admin Dose 650 MG; Start 03/05/17 at 17:00 Docusate Sodium (Colace) 200 mg DAILY PRN PO CONSTIPATION; Start 03/05/17 at 17: 00 Ondansetron HCl (Zofran Inj) 4 mg Q6H PRN IV NAUSEA AND/OR VOMITING; Start 03/05 at 17:00 Miscellaneous Information 1 ea NOTE XX ; Start 03/05/17 at 17:00 Glucose (Glutose) 15 gm Q15M PRN PO DECREASED GLUCOSE; Start 03/05/17 at 17:00 Glucose (Glutose) 22.5 gm Q15M PRN PO DECREASED GLUCOSE; Start 03/05/17 at 17:00 Dextrose (D50w Syringe) 25 ml Q15M PRN IV DECREASED GLUCOSE; Start 03/05/17 at 17:00 Dextrose (D50w Syringe) 50 ml Q15M PRN IV DECREASED GLUCOSE; Start 03/05/17 at 17:00 Glucagon (Glucagen) 1 mg Q15M PRN IM DECREASED GLUCOSE; Start 03/05/17 at 17:00 Glucose (Glutose) 15 gm Q15M PRN BUCCAL DECREASED GLUCOSE; Start 03/05/17 at 17: 00 Enoxaparin Sodium (Lovenox) 40 mg DAILY SC Last administered on 03/06/17 09:06 ; Admin Dose 40 MG; Start 03/06/17 at 09:00 Atorvastatin Calcium (Lipitor) 10 mg DAILY PO Last administered on 03/06/17 09: 02; Admin Dose 10 MG; Start 03/06/17 at 09:00 Fish Oil (Fish Oil) 1,000 mg BID PO Last administered on 03/06/17 09:02; Admin Dose 1,000 MG; Start 03/05/17 at 22:19 Latanoprost 1 drop 1 drop HS BOTH EYES ; Start 03/06/17 at 21:00 Sodium Chloride (NS) 1,000 ml @ 100 mls/hr Q10H IV Last administered on t 13:04; Admin Dose 100 MLS/HR; Start 03/06/17 at 10:30 Insulin Glargine (Lantus) 10 unit QHS SC ; Start 03/06/17 at 21:00 Procedures Procedures PROCEDURE: CT Abdomen and Pelvis without contrast. CLINICAL INDICATION: Abdominal pain TECHNIQUE: CT scan of the abdomen and pelvis was performed on a multidetector high-resolution CT scanner without intravenous contrast. Coronal and sagittal reformatted images were obtained from the axial source images. Images were reviewed on a high-resolution PACS workstation. The total exam CTDI equals 21mGy and the total exam DLP equals 1185mGy-cm. One or more of the following dose reduction techniques were used: Automated exposure control, Adjustment of the mA and/or kV according to patient size, and/or use of iterative reconstruction technique. COMPARISON: Abdominal CT 09/13/2016 FINDINGS: Evaluation of the solid organs is limited given the lack of intravenous contrast administration. The lung bases are clear. Nodular surface contour to the liver. Diffuse hypoattenuation of the liver. Status post cholecystectomy. No pancreatic ductal dilatation. Upper abdominal varices are seen. There is recanalization of the umbilical vein. The spleen is stable size. The adrenals are unremarkable. No hydronephrosis. No renal or ureteral stone. No bowel obstruction. Normal-caliber appendix. Colonic diverticulosis. No significant ascites or evidence of pneumoperitoneum. Scattered prominent periportal and retroperitoneal lymph nodes are similar to prior. Aortoiliac atherosclerosis. Fibroid uterus. Degenerative changes of the spine. IMPRESSION: No renal or ureteral stone. Cirrhosis with a stigmata of portal hypertension including recanalization of the umbilical vein and upper abdominal varices. Prominent periportal and retroperitoneal lymph nodes are presumably reactive. Hepatic steatosis. No evidence of bowel obstruction. Colonic diverticulosis. Fibroid uterus. Status post cholecystectomy. RPTAT: AA .Alistair Grande MD, MD Date Time Electronically viewed and signed by .Alistair Grande MD, on 03/05/2017 13:01 .T/ CC: SANGITA BUENO MD, BOLATITO M. March 06, 2017 15:50
[2017-03-06] MEDS: CEFTRIAXONE 1 GM/50 ML (PMX) 50 ML IVPB SCH (17:13)
[2017-03-06] MEDS: traMADol 50 MG TAB PO PRN (17:14)
[2017-03-06 19:44] VITALS: BP 145/67; RESP 18
[2017-03-06] MEDS ORDERED: ATORVASTATIN 10 MG TAB PO SCH (21:00)
[2017-03-06] MEDS ORDERED: INSULIN GLARGINE [LANtus] 3 ML PEN SC SCH (21:00)
[2017-03-06] MEDS ORDERED: LATANOPROST 0.005% 2.5 ML OPH BOTH EYES SCH (21:00)
[2017-03-07 06:30] LABS: ADD SCAN DIFF NO
[2017-03-07] MEDS: SOD CHLORIDE 0.9% 1,000 ML IV SCH (06:30)
[2017-03-07 06:44] LABS: BASOPHIL # 0.1 10^3/ul (0.0-0.1); BASOPHILS % 0.6 % (0.0-2.0); EOSINOPHILS # 0.2 10^3/ul (0.0-0.5); EOSINOPHILS % 2.1 % (0.0-7.0); HEMATOCRIT 33.6 % (37.0-47.0); HEMOGLOBIN 11.1 g/dl (12.0-16.0); LYMPHOCYTES # 4.2 10^3/ul (0.8-2.9); LYMPHOCYTES % 36.7 % (15.0-51.0); MEAN CORPUSCULAR HEMOGLOBIN 28.8 pg (29.0-33.0); MEAN PLATELET VOLUME 10.2 fl (7.4-10.4); MONOCYTE # 0.7 10^3/ul (0.3-0.9); MONOCYTES % 6.4 % (0.0-11.0); NEUTROPHIL # 6.2 10^3/ul (1.6-7.5); NEUTROPHILS % 53.9 % (39.0-77.0); PLATELET COUNT 215 10^3/UL (140-415); RED BLOOD COUNT 3.86 10^6/ul (4.20-5.40); RED CELL DISTRIBUTION WIDTH 13.9 % (11.5-14.5); WHITE BLOOD COUNT 11.5 10^3/ul (4.8-10.8)
[2017-03-07 06:52] LABS: POTASSIUM 4.1 mmol/L (3.5-5.1)
[2017-03-07 06:55] LABS: CREATININE 0.67 mg/dl (0.44-1.00)
[2017-03-07 06:56] LABS: CALCIUM 8.4 mg/dl (8.4-10.2)
[2017-03-07 07:36] VITALS: BP 127/60; RESP 15
[2017-03-07 08:04] LABS: T3 UPTAKE 34.2 % (23.5-40.5)
[2017-03-07 08:08] VITALS: BP 123/58; RESP 18
[2017-03-07] MEDS: INSULIN ASPART [NOVOLOG] 3 ML PEN SC SCH ×2 (08:15→12:35)
[2017-03-07 08:23] LABS: THYROID STIMULATING HORMONE 8.91 MIU/L (0.465-4.680)
[2017-03-07] MEDS: FISH OIL 1,000 MG CAP PO SCH (08:49)
[2017-03-07] MEDS: ATORVASTATIN 10 MG TAB PO SCH (08:50)
[2017-03-07] MEDS: ATENOLOL 25 MG TAB PO SCH (08:51)
[2017-03-07] MEDS: HYDROCHLOROTHIAZIDE 25 MG TAB PO SCH (08:51)
[2017-03-07] MEDS: metFORMIN 850 MG TAB PO SCH (08:51)
[2017-03-07] MEDS: PANTOPRAZOLE (EC) 40 MG TAB PO SCH (08:52)
[2017-03-07] MEDS: MULTIVITAMINS THERAPEUTIC TAB PO SCH (08:52)
[2017-03-07] MEDS: LISINOPRIL 10 MG TAB PO SCH (08:53)
[2017-03-07] MEDS: ENOXAPARIN 40 MG/0.4 ML SYG SC SCH (09:00)
--- NOTE | 2017-03-07 10:46 | PDOCDIS ---
Discharge Instructions CONDITION Patient Condition: Stable OTHER ORDERS: Other Orders: Name, Degree: Javier Amin MD Specialty: Endocrinology Comments: Office Address: [address] [place] [address] Office Office NIKOLE SOARES March 07, 2017 10:46
[2017-03-07] MEDS ORDERED: LANT3I SC (10:57)
[2017-03-07] MEDS ORDERED: AMOX1TAB10 PO (10:57)
[2017-03-07] MEDS ORDERED: DOCU-216 PO (10:57)
[2017-03-07] MEDS ORDERED: LISI10TA2 PO (10:57)
[2017-03-07] MEDS ORDERED: LEVO500T10 PO (12:45)
--- NOTE | 2017-03-07 18:30 | DS ---
DATE OF ADMISSION: 03/05/2017 DATE OF DISCHARGE: 03/07/2017 FINAL DIAGNOSES: 1. Systemic inflammatory response syndrome, likely secondary to viral syndrome. 2. Hypertensive urgency, resolved. 3. Diabetes type 2 with good control of hemoglobin A1c. 4. Subclinical hyperthyroidism. 5. Dyslipidemia. 6. Chronic cirrhosis, likely secondary to hepatic steatosis. 7. Mild transaminitis likely secondary to cirrhosis. 8. History of chronic tobacco use. Quit recently 3 months ago. 9. She tried fibroids with postmenopausal bleeding for which she has a uterine biopsy scheduled in this month as an outpatient. CONSULTS ON THE CASE: None. INTERVENTIONS: 1. Chest x-ray showed no evidence of acute disease and it showed some atherosclerotic vascular dise ase. 2. CT of the abdomen and pelvis showed cirrhosis with stigmata of portal hypertension, including re canalization of the umbilical vein and upper abdominal pheresis, prominent periportal and retroperit plaza lymph nodes, likely to be reactive. 3. Hepatic steatosis. 4. Colonic diverticulosis without diverticulitis. 5. Fibroid uterus. 6. Status post cholecystectomy. The patient also had microbiology studies done to include blood cultures that were negative, urine c ultures and influenza screen that all came back negative. HOSPITAL COURSE: Full details are available in the chart for review. In summary, this 71-year-old female presented to the emergency room with fever and chills and she was worked up for systemic infl ammatory response syndrome, but the source of her infection was not readily found. She was started on broad-spectrum antibiotics as well as supportive care, including antipyretics and pain medication control ad antiemetics. She did not have any focused pain. She felt lethargic and weak all over. She responded to fluids and antibiotic therapy very well. Her urine and blood cultures came back n egative. Flu screen was negative, but she probably has an obscure viral infection that was not test ed for. She did well and her diabetes control was reviewed while in house, when she was found to araujo ve excellent control on her home medications. Her blood pressure was quite elevated when she came i n, but just on her home medications, she was found to be controlled in house. She did states she araujo d not been taking her medications because of feeling sick. Regarding her history of cirrhosis, she says she has been told this before, but her outpatient hogshead press operator told her that her liver was fine . I reviewed her CT findings with her, and encouraged her to take a copy of the CT report to her tpatie hogshead press operator and show him the the CT findings for further intervention. She also showed me that she has a biopsy scheduled for uterine fibroids because she has been postmenopausal bleeding a nd that is later this month. Her thyroid profile came back with an elevated TSH, but free T3 and T4 are normal. In the setting of an acute febrile illness, this was reviewed with endocrinology over the phone and Dr. Amin recommended that the patient repeat the studies in about 4 to 6 weeks. She was given Dr. Amin's office information for followup or she could have her primary care physician refer her to an drapery operator for further care. This was also communicated to the patient. Today , the patient has been 24 hours fever free. She feels a lot better. Her appetite has improved but not optimal. She is desirous of discharge. Her physical exam was benign. DISCHARGE MEDICATIONS: 1. Levaquin 500 daily for 3 more days. 2. Colace ____p.o. daily. 3. Lisinopril 10 mg daily. 4. Lantus 15 units subcutaneous at bedtime. 5. Promethazine as needed for cough. 6. Tessalon Perles also as needed. 7. Zofran ODT as needed for nausea and vomiting. 8. Tramadol 50 t.i.d. p.o. p.r.n. 9. Albuterol as needed. 10. Multivitamin 1 tab daily. 11. Fish oil 1 capsule b.i.d. 12. ____ daily. 13. Pravastatin 40 p.o. before breakfast. 14. Metformin 850 b.i.d. 15. Protonix 40 mg daily. 16. Amaryl. 17. ____. 18. Tenormin 25 mg daily. DISPOSITION: To home. ACTIVITIES: As tolerated. DISCHARGE CONDITION: Stable. DIET: Recommended diet 1800 ADA, low cholesterol, low fat. Time on discharge 45 minutes. Dictated By: NIKOLE SOARES MD, BA/JAMEY Conf#: [id number] DID#: [id number]
== END 2017-03-07 13:50 | disposition home or self-care (01) | DRG 872 ==
LOC: E/R 09:33 → MS2 13:19
PROVIDERS: ADMIT Family Medicine; ATTEND Family Medicine
DX: A41.89 Other specified sepsis (principal); K74.60 Unspecified cirrhosis of liver; E11.9 Type 2 diabetes mellitus without complications; B34.9 Viral infection, unspecified; I16.0 Hypertensive urgency; K76.0 Fatty (change of) liver, not elsewhere classified; E78.5 Hyperlipidemia, unspecified; E05.90 Thyrotoxicosis, unspecified without thyrotoxic crisis or storm; D25.9 Leiomyoma of uterus, unspecified; N95.0 Postmenopausal bleeding; R74.0 Nonspecific elevation of levels of transaminase and lactic acid dehydrogenase [LDH]; E66.9 Obesity, unspecified; Z68.34 Body mass index [BMI] 34.0-34.9, adult; Z79.4 Long term (current) use of insulin; Z90.49 Acquired absence of other specified parts of digestive tract; Z87.891 Personal history of nicotine dependence
CPT/HCPCS: 36415; 71010; 74176; 80048; 80053; 80061; 80076; 81003; 82962; 83605; 83690; 83735; 84436; 84443; 84479; 84484; 85025; 85610; 85730; 86706; 86803; 87040; 87086; 87340; 87400; 93005; 96365; 96366; 96375; 96376; A4310; J0696; J1650; J1815; J3475; J7030

== ENCOUNTER 2017-12-22 15:53 | Emergency (ER) | END 2017-12-22 19:21 | disposition home or self-care (01) ==